=== PATIENT | male | born 1985 | race Caucasian/White ===

== ENCOUNTER 2023-02-21 08:24 | Outpatient (CLI) | payer OTHER, SELFPAY ==
[2023-02-21 13:11] LABS: Basophils Percent Auto 0.6 % (0.2-1.2); Eosinophils Absolute Auto 0.4 K/mm3 (0-0.3); Eosinophils Percent Auto 5.4 % (0-4.4); Hematocrit 48.3 % (42.0-52.0); Hemoglobin 15.7 g/dL (14.0-18.0); Immature Granulocyte Absolute 0.01 K/mm3 (0.00-0.031); Immature Granulocyte Percent A 0.1 % (0-0.5); Lymphocytes Absolute Auto 1.89 K/mm3 (0.9-3.2); Lymphocytes Percent Auto 26.1 % (18.3-44.2); Mean Corpuscular HGB Conc 32.5 g/dl (32-36); Mean Corpuscular Hemoglobin 30.7 pg (26-34); Mean Corpuscular Volume 94.5 fl (80-100); Mean Platelet Volume 10.7 fl (7.4-10.4); Monocytes Absolute Auto 0.6 K/mm3 (0.1-0.6); Monocytes Percent Auto 7.6 % (2.6-8.5); Neutrophils Absolute Auto 4.4 K/mm3 (1.3-6.7); Neutrophils Percent Auto 60.2 % (45.5-73.1); Platelet Count Result 266 k/mm3 (150-375); Red Blood Count 5.11 M/mm3 (4.6-6.20); Red Cell Distribution Width 12.3 % (11.5-14.5); White Blood Count 7.3 K/mm3 (4.5-10.0)
[2023-02-21 13:24] LABS: Alanine Aminotransferase 22 U/L (6-50); Albumin Level 4.4 g/dL (3.5-5.1); Alkaline Phosphatase 42 U/L (38-126); Anion Gap 8 mmol/L (8-16); Aspartate Amino Transferase 35 U/L (17-59); Bilirubin,Total 0.7 mg/dL (0.2-1.3); Blood Urea Nitrogen 16 mg/dL (9-20); Calcium 8.9 mg/dL (8.4-10.2); Carbon Dioxide 30 mmol/L (22-30); Chloride 99 mmol/L (98-107); Cholesterol 237 mg/dL (0-200); Estimated Glomerular Filt Rate > 60; Glucose 94 mg/dL (65-110); HDL Direct 57 mg/dL; Potassium 4.5 mmol/L (3.4-5.0); Sodium 137 mmol/L (137-145); Triglycerides 99 mg/dL (<150)
[2023-02-21 13:34] LABS: LDL Cholesterol Direct 131 mg/dL
== END 2023-02-21 08:25 | disposition home or self-care (01) ==
LOC: ANHGOSHLAB 08:26
PROVIDERS: PCP Family Medicine; Visit Provider Family Medicine
DX: Z00.00 Encounter for general adult medical examination without abnormal findings (principal)
CPT/HCPCS: 36415; 80053; 80061; 85025

== ENCOUNTER 2023-11-17 07:53 | Outpatient (CLI) | payer OTHER, SELFPAY ==
[2023-11-17 13:08] LABS: Alanine Aminotransferase 17 U/L (6-50); Albumin Level 4.6 g/dL (3.5-5.1); Alkaline Phosphatase 55 U/L (38-126); Anion Gap 7 mmol/L (4-12); Aspartate Amino Transferase 79 U/L (17-59); Blood Urea Nitrogen 20 mg/dL (9-20); Calcium 9.3 mg/dL (8.4-10.2); Carbon Dioxide 29 mmol/L (22-30); Chloride 101 mmol/L (98-107); Cholesterol 212 mg/dL (0-200); Estimated Glomerular Filt Rate > 60; Glucose 100 mg/dL (65-110); HDL Direct 66 mg/dL; Potassium 4.3 mmol/L (3.4-5.0); Sodium 137 mmol/L (137-145); Triglycerides 83 mg/dL (<150)
[2023-11-17 13:13] LABS: Rheumatoid Factor < 12.0 IU/ML (<12)
[2023-11-17 13:20] LABS: LDL Cholesterol Direct 108 mg/dL
[2023-11-17 13:38] LABS: Prostate Specific Antigen 0.8 ng/mL (< OR = 4.0)
[2023-11-17 14:12] LABS: Erythrocyte Sedimentation Rate 2 mm/hr (0-20)
[2023-11-17 14:51] LABS: Hepatitis C Virus Antibody Negative (Negative)
[2023-11-18 12:33] LABS: ANA Cascade Screen NEGATIVE (NEGATIVE)
== END 2023-11-17 07:54 | disposition home or self-care (01) ==
LOC: ANHGOSHLAB 07:54
PROVIDERS: PCP Family Medicine; Visit Provider Family Medicine
DX: Z00.00 Encounter for general adult medical examination without abnormal findings (principal); M79.10 Myalgia, unspecified site; R13.10 Dysphagia, unspecified; Z80.42 Family history of malignant neoplasm of prostate; Z11.59 Encounter for screening for other viral diseases; Z12.5 Encounter for screening for malignant neoplasm of prostate
CPT/HCPCS: 36415; 80053; 80061; 84153; 85652; 86038; 86225; 86235; 86364; 86430; 86431; 86803; G0103

== ENCOUNTER 2023-12-01 07:00 | Outpatient (NON) | payer OTHER, SELFPAY | END 2023-12-01 07:01 | disposition home or self-care (01) | LOC: ANHLAB 12-02 12:42 | PROVIDERS: PCP Family Medicine; Visit Provider Internal Medicine Gastroenterology | DX: K21.00 Gastro-esophageal reflux disease with esophagitis, without bleeding (principal) | CPT/HCPCS: 88305 ==

== ENCOUNTER 2023-12-01 08:06 | Day surgery (SDC) | payer OTHER, SELFPAY ==
[2023-11-20 08:50] VITALS: BMI 23.0
[2023-11-21 11:52] VITALS: BMI 22.5
[2023-12-01 08:37] VITALS: BP 124/80; PULSE 61; RESP 18; TEMP 37.1; O2SAT 99
[2023-12-01] MEDS: LACTATED RINGERS 1,000 ML 150 ML IV CONT (08:39)
--- NOTE | 2023-12-01 09:11 | P.HP_ITS ---
History of Present Illness History of Present Illness Consent: Risks, benefits, and alternatives have been discussed and questions answered. Patient agrees to proceed with procedure. Chief complaint: Dysphagia,unspedified; myalgia unspecified site Narrative: Denice Clay is a 38 year old male Who has been having difficulty with food getting stuck when swallowing. This began about 2 years ago. Review of Systems Review of Systems: All systems reviewed & are unremarkable except as noted in HPI and below PMFSH Past Medical History Medical History Interiano's palsy Cervical radiculopathy xray: 12.30.18: mild to moderate cervical spondylosis Family History Family History Father Hypertension, Onset Age: 67 Mother Hypertension, Onset Age: 67 Other Malignant neoplasm of prostate Social History Social History Smoking status: Never smoker Alcohol intake: never Substance use: never Substance use type: does not use Do You Feel Safe in your Home?: Yes Lack of Transportation: No Lack of Food: Never True Current Housing: I Have Housing Concerned About Future Housing: No Difficulty Paying Gas/Electric Bills: No Difficulty Paying for Meds: No Currently Unemployed: No Education: Bachelor's Degree Difficulty w/ Childcare or Family Care: No Living arrangements: with family Occupation/Education: occupation 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 Gender identity (if verbalized by the patient): Male Spiritual care concerns: No Agree to blood products: Yes Meds Home Medications and Allergies Home Medications Medication Instructions Recorded Confirmed Type omeprazole 40 mg capsule,delayed 40 mg PO DAILY #90 caps 11/13/23 12/01/23 Rx release Allergies Allergy/AdvReac Type Severity Reaction Status Date / Time No Known Allergies Allergy Verified 12/01/23 08:36 Vital Signs Vital Signs - 24 hr 12/01/23 08:37 Temperature 37.1 C Pulse Rate 61 Respiratory Rate 18 Blood Pressure 124/80 Pulse Oximetry 99 Oxygen Delivery Room Air Exam Const: General: alert Orientation/consciousness: patient oriented x3 Resp: Auscultation: clear to auscultation bilaterally Cardio: Rhythm: regular rhythm GI: GI Palp: Yes Soft to palpation and No Tenderness to palpation present (GI) Neuro: General: patient oriented x3 Assessment and Plan Assessment and plan (1) Dysphagia: Qualifiers: Dysphagia type: esophageal phase Qualified Code(s): R13.19 - Other dysphagia Code(s): R13.10 - Dysphagia, unspecified Status: Acute Assessment and Plan: EGD with possible biopsy or dilatation or cautery.
--- NOTE | 2023-12-01 09:27 | WPDANESEPPF ---
Anes - Initial Pre Proc Eval Procedure: Operation Date: 12/01/23 10:00 Proposed Procedures p Esophagogastroduodenoscopy - John Boucher MD Date/Time: 12/01/23 09:27 Surgeon: John Boucher MD Pre Op Diagnosis: Dysphagia,unspedified; myalgia unspecified site Patient Data Age: 38 Gender: M Height: 1.96 m Weight: 87.7 kg Last Vital Signs Temp 37.1 C 12/01/23 08:37 Pulse 61 12/01/23 08:37 Resp 18 12/01/23 08:37 BP 124/80 12/01/23 08:37 Pulse Ox 99 12/01/23 08:37 O2 Del Method Room Air 12/01/23 08:37 Allergies Allergy/AdvReac Type Severity Reaction Status Date / Time No Known Allergies Allergy Verified 12/01/23 08:36 Home Medications Medication Instructions Recorded Confirmed Type omeprazole 40 mg capsule,delayed 40 mg PO DAILY #90 caps 11/13/23 12/01/23 Rx release Patient hx anesthesia problems: none Family hx anesthesia problems: none Results Review: All pre-operative results and documents have been reviewed as part of the pre-operative evaluation. [facility] Past Medical History Medical History Interiano's palsy Cervical radiculopathy xray: 7.17.19: mild to moderate cervical spondylosis Family History Family History Father Hypertension, Onset Age: 67 Mother Hypertension, Onset Age: 67 Other Malignant neoplasm of prostate Social History Social History Smoking status: Never smoker Alcohol intake: never Substance use: never Substance use type: does not use Do You Feel Safe in your Home?: Yes Lack of Transportation: No Lack of Food: Never True Current Housing: I Have Housing Concerned About Future Housing: No Difficulty Paying Gas/Electric Bills: No Difficulty Paying for Meds: No Currently Unemployed: No Education: Bachelor's Degree Difficulty w/ Childcare or Family Care: No Living arrangements: with family Occupation/Education: occupation 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 Informed Consent: The patient's anesthetic plan and its attendant risks and benefits were discussed with the patient/family/POA. Questions were solicited and answers provided to the satisfaction of the patient/family/POA.
[2023-12-01 10:25] VITALS: BP 114/75; PULSE 63; RESP 16; O2SAT 100
[2023-12-01 10:33] VITALS: BP 111/79; PULSE 69; RESP 16; O2SAT 100
--- NOTE | 2023-12-01 11:31 | WPDANESPN ---
Anes - Prog Note Post-Op Date/Time: 12/01/23 11:31 Cardiovascular status: normal Respiratory status: normal Airway patency: baseline Mental status: baseline Post-Op hydration status: normal Vital Signs: Last Vital Signs Temp 37.1 C 12/01/23 08:37 Pulse 69 12/01/23 10:33 Resp 16 12/01/23 10:33 BP 111/79 12/01/23 10:33 Pulse Ox 100 12/01/23 10:33 O2 Del Method Room Air 12/01/23 10:33 Pain Score (VAS): 0/10 I/O: Intake & Output 11/30/23 12/01/23 12/01/23 23:59 07:59 15:59 Intake Total 1300 Balance 1300 Patient Feedback: Patient satisfied with anesthetic care.
== END 2023-12-01 10:50 | disposition home or self-care (01) ==
PROVIDERS: PCP Family Medicine; Visit Provider Internal Medicine Gastroenterology
PROC: 0DJ08ZZ Inspection of Upper Intestinal Tract, Via Natural or Artificial Opening Endoscopic (ICD-10-PCS; CPT 43235; principal; 2023-12-01 10:00)
DX: R13.19 Other dysphagia (principal); K22.2 Esophageal obstruction; K21.9 Gastro-esophageal reflux disease without esophagitis
CPT/HCPCS: 43249; 43239

== ENCOUNTER 2024-09-29 07:48 | Outpatient (CLI) | payer OTHER, SELFPAY ==
--- OUTSIDE RECORDS SUMMARY | 2024-09-29 07:57 | XMS_ITS | Clinical Summary ---
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 Gender Identity Not on file Sexual Orientation Not on file Plan of Treatment Health Maintenance Due Date Last Done Comments Hepatitis C Virus (HCV) Screening 1985 Hepatitis B Immunization (1 of 3 - 19+ 3-dose series) 08/27/2002 Influenza Immunization (#1) 2024 SARS-COV-2 Immunization ( season) 2024 Respiratory Syncytial Virus (RSV) Immunization (Adult) (1 - 1-dose 75+ series) 08/27/2058 DTaP/Tdap/Td Immunization Discontinued 09/15/2007 TdaP Immunization Completed 09/15/2007 Meningococcal Immunization (ACWY) Aged Out No longer eligible based on patient's age to complete this topic Pneumococcal Immunization Combined Aged Out No longer eligible b ased on patient's age to complete this topic Rotavirus Immunization Aged Out No lo nger eligible based on patient's age to complete this topic Insurance [employer] on file
--- OUTSIDE RECORDS SUMMARY | 2024-09-29 07:57 | XMS_ITS | Referral Summary ---
Author Organization [place] [address] [address] Care Team Providers Care Barber Shop Operator Name Role Phone No, Physician Primary Care Provider [phone] Allergies No known active allergies Medications No known medications Active Problems No known active problems Social History Tobacco Use Types Packs/Day Years Used Date Smoking Tobacco: Never Personal Safety Answer Date Recorded Getting School Help Needed Not on file 08/16 Sex and Gender Information Value Date Recorded Sex Assigned at Not on file Legal Sex Male 2:56 PM CDT Gender Identity Not on file Sexual Orientation Not on file Last Filed Vital Signs Vital Sign Reading Time Taken Comments Blood Pressure 124/78 09/11/2021 5:07 PM CDT Pulse 76 09/11/2021 5:07 PM CDT Temperature 37.6 C (99.7 F) 09/11/2021 5:07 PM CDT Respiratory Rate 18 09/11/2021 5:07 PM CDT Oxygen Saturation 99% 09/11/2021 5:07 PM CDT Inhaled Oxygen Concentration - - Weight 92.1 kg (203 lb) 09/11/2021 5:07 PM CDT Height 195.6 cm (6' 5 ) 09/11/2021 5:07 PM CDT Body Mass Index 24.07 09/11/2021 5:07 PM CDT Plan of Treatment Not on file Insurance [facility] Care Teams Barber Shop Operator Relationship Specialty Start Date End Date No, Physician PCP - General 09/11/21
--- OUTSIDE RECORDS SUMMARY | 2024-09-29 07:57 | XMS_ITS | Clinical Summary ---
Author Organization [facility] [address] Address [address] [place] [id number] Care Team Providers Care Masticator Name Role Phone No, Physician Primary Care Provider [phone] Allergies No known active allergies Medications No [...] on file Sexual Orientation Not on file Obstetrics History Last Filed Vital Signs Vital Sign Reading [...] 09/11/2021 5:07 PM CDT Plan of Treatment Health Maintenance Due Date Last Done Comments Depression Screening 1985 Hepatitis C Screening 1985 Varicella Vaccines (1 of 2 - 13+ 2-dose series) 08/27/1996 Hepatitis B Screening 08/27/2001 Regular Well Visit/Exam 18-64 08/27/2001 DTaP/Tdap/Td Vaccine (2 - Td or Tdap) 09/14/2017 09/15/2007 Covid-19 Vaccine (2023-2 5 season) 2024 09/26/2020, 08/31/2020 Influenza Vaccine (Season Ended) 2025 HPV Vaccines Aged Out No longer eligi ble based on patient's age to complete this topic Pneumococcal vaccine <65 Aged Out No longer eligible based on patient's age to complete this topic Insurance [facility] Care Teams Masticator Relationship Specialty Start Date End Date No, Physician PCP - General 09/11/21
== END 2024-09-29 07:49 | disposition home or self-care (01) ==
LOC: ANHSURGERY 07:53
PROVIDERS: PCP Family Medicine; Visit Provider Surgery
DX: Z01.818 Encounter for other preprocedural examination (principal); K40.90 Unilateral inguinal hernia, without obstruction or gangrene, not specified as recurrent
CPT/HCPCS: 36415; 86850; 86900; 86901

== ENCOUNTER 2024-10-04 00:54 | Day surgery (SDC) | payer OTHER, BC, SELFPAY ==
[2024-09-24 10:19] VITALS: BMI 23.5
--- NOTE | 2024-09-24 10:20 | PC.NURSE ---
Report to the Outpatient Waiting Room, entrance under the green pavilion located off [facility], at time ___0600____ on date ____10/04/2024___. Planned Procedure Time: ____729____.? Time changes happen often and if your time is changed the preop area will call you the afternoon before. - You and your visitor will be asked to self-screen and do not enter if you have any COVID symptoms. Please call surgeon if you need to reschedule. - A mask is optional within the hospital at this time. Patients may have clear liquids (water, carbonated beverages, clear teas, apple juice) until 3 hours prior to surgery with a maximum of 20 ounces. - No food from midnight until time of surgery and no smoking, or chewing tobacco (or any form of nicotine). No chewing gum, candy or mints. - Infants may have breast milk until 4 hours before surgery, formula 6 hours prior to surgery. - Children will be allowed to drink immediately following surgery.? If applicable, please bring a bottle or sippy cup to assist with drinking. Juice, water, soda, and popsicles are readily available.? For infants on formula, please bring formula the day of surgery.? Pacifiers are allowed. Take only the following medications with a SIP of water on the morning of surgery: none DO NOT STOP ANY OF YOUR OTHER PRESCRIPTION MEDICATIONS PRIOR TO SURGERY EXCEPT THE FOLLOWING Hold all vitamins and supplements for 3 days per anesthesiologist. Medications to discontinue per physician Date to take last dose Please no make-up, nail andorran, hairspray, perfume, deodorant, or body powder the day of surgery.? No jewelry (including any body piercings) or valuables the day of surgery, leave them at home.? Please take a shower or bath the night before, or the morning of, surgery with an antibacterial soap.? Wear comfortable, loose fitting clothing.? Children are encouraged to wear pajamas. - Jewelry must be removed prior to entering the operating room.? Rings and piercings that are not removed may be cut off. - The hospital will not accept responsibility for valuables.? - Please leave all valuables, including medications, at home the day of surgery. If you are going home after surgery, a licensed hazmat cdl a driver must drive you home.? - NO public transportation without another adult if you receive anesthesia. - We recommend that an adult stay with you for 24 hours following discharge. - We also recommend that you do not drive, make important decision, drink alcoholic beverages, or take any drugs that were not prescribed by your health care provider for at least 24 hours after your discharge time. For Pediatric surgeries, we recommend two adults accompany the child home. Follow any additional instructions given to you from your surgeon. Telephone instructions given to ___Shea and asked if any additional questions and then verbalized understanding. Patient advised to call surgeon office or pre surgery nurse liaison [phone] if any additional questions.
[2024-10-04] VITALS (10 sets, daily range): BP systolic 111–134; BP diastolic 66–78; PULSE 61–98; RESP 10–16; TEMP 36.2–36.9; O2SAT 96–100
--- OUTSIDE RECORDS SUMMARY | 2024-10-04 01:05 | XMS_ITS | Referral Summary ---
Author Organization [place] [address] [address] Care Team Providers Care Duralumin Mechanic Name Role Phone No, Physician Primary Care Provider [phone] Allergies No known active allergies Medications No [...] 5:07 PM CDT Height 195.6 cm (6' 5) 09/11/2021 5:07 PM CDT Body Mass Index 24.07 09/11/2021 5:07 PM CDT Plan of Treatment Not on file Insurance [facility] Care Teams Duralumin Mechanic Relationship Specialty Start Date End Date No, Physician PCP - General 09/11/21
--- OUTSIDE RECORDS SUMMARY | 2024-10-04 01:05 | XMS_ITS | Clinical Summary ---
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
--- OUTSIDE RECORDS SUMMARY | 2024-10-04 01:05 | XMS_ITS | Clinical Summary ---
Author Organization [facility] [address] Address [address] [place] [phone] Care Team Providers Care Therapist Occupational Name Role Phone No, Physician Primary Care Provider [phone] Allergies No known active allergies Medications No [...] patient's age to complete this topic Insurance [facility] Care Teams Therapist Occupational Relationship Specialty Start Date End Date No, Physician PCP - General 09/11/21
--- NOTE | 2024-10-04 05:54 | WPDHPUPDATE1 ---
History and Physical Update Update Date/Time: 10/04/24 05:54 History and Physical has been reviewed, including an updated exam of the patient. There are NO changes in the patient's condition. Risks, benefits, and alternatives have been discussed and questions answered. Patient agrees to proceed with procedure.
[2024-10-04] MEDS: ACETAMINOPHEN 500 MG TABLET 1000 MG PO (06:40)
[2024-10-04] MEDS: LACTATED RINGERS 1,000 ML 30 ML IV CONT ×2 (06:45→10:20)
[2024-10-04] MEDS: KETOROLAC 15 MG/ML VIAL (*BKC) IV PUSH ×2 (06:48→09:48)
--- NOTE | 2024-10-04 06:58 | WPDANESEPPF ---
Anes - Initial Pre Proc Eval Procedure: Operation Date: 10/04/24 07:30 Proposed Procedures p Robotic Assisted Laparoscopic Left Inguinal Hernia Repair with Mesh, - Delonte Kraft MD s Bilateral Vasectomy - Regis [place] MD Date/Time: 10/04/24 06:58 Surgeon: Delonte Kraft MD Pre Op Diagnosis: reducible left inguinal hernia, desires sterilizat Patient Data Age: 39 Gender: M Height: 1.96 m Weight: 90 kg Allergies Allergy/AdvReac Type Severity Reaction Status Date / Time No Known Allergies Allergy Verified 10/04/24 06:58 Home Medications ?Medication ?Instructions ?Recorded ?Confirmed ?Type omeprazole 40 mg capsule,delayed 40 mg PO DAILY #90 caps 11/13/23 09/24/24 Rx release Patient hx anesthesia problems: none Family hx anesthesia problems: none Results Review: All pre-operative results and documents have been reviewed as part of the pre-operative evaluation. [facility] Past Medical History Medical History Cervical radiculopathy xray: 7.17.19: mild to moderate cervical spondylosis Interiano's palsy Surgical History Surgical History History of esophagogastroduodenoscopy (EGD) Family History Family History Father Hypertension, Onset Age: 67 Mother Hypertension, Onset Age: 67 Other Malignant neoplasm of prostate Social History Social History Smoking status: Never smoker Alcohol intake: never Substance use: never Substance use type: does not use Do You Feel Safe in your Home?: Yes Lack of Transportation: No Lack of Food: Never True Current Housing: I Have Housing Concerned About Future Housing: No Difficulty Paying Gas/Electric Bills: No Difficulty Paying for Meds: No Currently Unemployed: No Education: Bachelor's Degree Difficulty w/ Childcare or Family Care: No Living arrangements: with family Occupation/Education: occupation 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 Informed Consent: The patient's anesthetic plan and its attendant risks and benefits were discussed with the patient/family/POA. Questions were solicited and answers provided to the satisfaction of the patient/family/POA.
--- NOTE | 2024-10-04 07:39 | PM.IMHP ---
H&P: HPI History of Present Illness Date/Time: 10/04/24 07:39 Chief Complaint: Left inguinal hernia Narrative: Mr. Clay presents to the office at the request of Dr. Ela Landrum for evaluation of a possible hernia. 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 Bulge is reducible while lying down. No change no change in bowel habits, urinary difficulty, abdominal distension, nausea, vomiting, or abdominal distension. Review of Systems Review of Systems: The remainder of the review of systems to include constitutional, HEENT, cardiovascular, respiratory, GI, , integumentary, musculoskeletal, endocrine, immunologic, hematologic, psychiatric, and neurologic are all negative except for which is mentioned above in the HPI. [facility] Past Medical History Medical History Cervical radiculopathy xray: 7.17.19: mild to moderate cervical spondylosis Interiano's palsy Surgical History Surgical History History of esophagogastroduodenoscopy (EGD) Family History Family History Father Hypertension, Onset Age: 67 Mother Hypertension, Onset Age: 67 Other Malignant neoplasm of prostate Social History Social History Smoking status: Never smoker Alcohol intake: never Substance use: never Substance use type: does not use Do You Feel Safe in your Home?: Yes Lack of Transportation: No Lack of Food: Never True Current Housing: I Have Housing Concerned About Future Housing: No Difficulty Paying Gas/Electric Bills: No Difficulty Paying for Meds: No Currently Unemployed: No Education: Bachelor's Degree Difficulty w/ Childcare or Family Care: No Living arrangements: with family Occupation/Education: occupation 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 Gender identity (if verbalized by the patient): Male Spiritual care concerns: No Agree to blood products: Yes Meds Home Medications and Allergies Home Medications ?Medication ?Instructions ?Recorded ?Confirmed ?Type omeprazole 40 mg capsule,delayed 40 mg PO DAILY #90 caps 11/13/23 10/04/24 Rx release Allergies Allergy/AdvReac Type Severity Reaction Status Date / Time No Known Allergies Allergy Verified 10/04/24 07:00 Vital Signs Vital Signs - 24 hr 10/04/24 06:08 Temperature 36.9 C Pulse Rate 61 Respiratory Rate 16 Blood Pressure 111/70 Pulse Oximetry 100 Oxygen Delivery Room Air Exam Const: General: comfortable and no acute distress HENMT: Ears: TM's normal bilaterally Face/Nose/Sinus: Normal nares present Mouth: Yes moist mucous membranes Eyes: General: appearance normal, both eyes and all related structures Sclera: sclerae normal Pupils: Equal, round and reactive pupils present EOM: EOMs intact bilaterally Neck: Neck: supple and no JVD Resp: Effort & Inspection: normal respiratory effort Auscultation: clear to auscultation bilaterally Cardio: Rate: regular rate Rhythm: regular rhythm GI: GI Palp: Yes Soft to palpation, No Firmness to palpation present (GI), No Tenderness to palpation present (GI), No Guarding due to palpation present (GI) and No Hernia present Other: small 1 cm umbilical hernia : Other: Bilateral descended testes, no masses. Small reducible left inguinal hernia with Valsalva. No right inguinal hernia. Neuro: General: gait normal Speech: normal speech Motor exam (neuro): 5/5 motor strength present throughout Sensory Exam: normal sensation Extrem: General: normal to inspection Psych: Mental Status: mental status grossly normal Affect: normal affect Assessment and Plan Assessment and plan (1) Left inguinal hernia: Code(s): K40.90 - Unilateral inguinal hernia, without obstruction or gangrene, not specified as recurrent Status: Acute Assessment and Plan: Prior to the patients visit, I reviewed the office note of Dr. Landrum. Patient has a easily palpable, reducible left inguinal hernia. I've recommended proceeding with robotic assisted laparoscopic left inguinal hernia repair with mesh to be performed in the OR under general anesthesia as an outpatient. The surgery was explained in detail including description, risks, benefits, the use of mesh, post-operative restrictions, anticipated recovery, and expected outcome. After discussion and answering all the patients questions, he agrees to proceed as discussed. (2) Unilateral inguinal hernia without obstruction: Code(s): K40.90 - Unilateral inguinal hernia, without obstruction or gangrene, not specified as recurrent Status: Acute
--- NOTE | 2024-10-04 07:42 | WPDHPUPDATE1 ---
History and Physical Update Update Date/Time: 10/04/24 07:42 History and Physical has been reviewed, including an updated exam of the patient. There are NO changes in the patient's condition. Risks, benefits, and alternatives have been discussed and questions answered. Patient agrees to proceed with procedure.
[2024-10-04] MEDS: ceFAZolin 2 GM/D5W 50 ML 2 GM/50 ML BAG IVPB (07:47)
--- NOTE | 2024-10-04 08:03 | S_PTH ---
PATIENT: Denice Clay LOC: [facility] U#:[id number] AGE/SX: 39/M ROOM: RE10/04/[address]: Delonte Kraft MD : 1985 BED: DIS: 10/04/2024 SPEC #: [id number] RECD: 10/04/24 11:33 STATUS: CHRISTY REQ #: [id number] JOEY: 10/04/24 08:[address]: Delonte Kraft DEPT: [facility] Surgical RECD BY: Shanti Caban ENTERED: 10/04/24 11:33 SP TYPE: Surgical OTHR DR: Ela Landrum MD Tissues: A - Vas Deferens B - Vas Deferens Procedures: Gross Exam Level 1
--- NOTE | 2024-10-04 08:23 | P.OP_ITS ---
Procedure Note - Detailed Date of Procedure 10/04/24 Pre-op Diagnosis reducible left inguinal hernia, desires sterilizat Post-op Diagnosis Same Procedure Performed Bilateral vasectomy Surgeon Regis [place] MD Anesthesia General Description of Procedure The patient is prepped and draped in a routine fashion, while in a supine position, after the uneventful induction of a general anesthetic. A single incision (approx. 1/4') is made in the median raphe of the scrotum. Each vas deferens is delivered and a short segment excised and send for pathology sectioning. The cut end of the vas deferens are cauterized and spermatic cord fascia is interposed between the cut ends. The vasa are returned to an orth otopic position and the incision is closed with a 4-0 chromic.
[2024-10-04] MEDS: LIDOCAINE 1% LOCAL INJ 10 ML VIAL 5 ML INFILTRATE (08:27)
[2024-10-04] MEDS: LIDO 1%/EPINEPHRINE 1:100,000 50 ML VIAL 30 ML INFILTRATE (08:28)
[2024-10-04] MEDS: BUPivacaine HCL 0.5% 10 ML AMP 30 ML INFILTRATE (08:31)
--- NOTE | 2024-10-04 11:03 | W.PM.PROC2 ---
Procedure Note - Detailed Date of Procedure 10/04/24 Pre-op Diagnosis Reducible left inguinal hernia, desires sterilizat Post-op Diagnosis Same Procedure Performed Robotic assisted laparoscopic left inguinal hernia repair with Bard 3D mid weight mesh. Surgeon Delonte Kraft MD Anesthesia General Indications Patient is a 49-year-old male who apparently developed a left inguinal hernia after fix some playground equipment at work. It is slowly enlarging and causing him some minor pain. He presents now for elective repair with mesh reinforcement the robotic assisted laparoscopic approach with mesh. Patient also desires to have elective sterilization and is going to have a open vasectomy done by Dr. Newton at the same setting. Findings Patient had a small to moderate-sized reducible left inguinal hernia. No evidence of a right inguinal hernia. He also had a small umbilical hernia. Description of Procedure After informed consent was obtained patient brought to the operating room was placed supine position and general endotracheal anesthesia was administered. Dr. Newton then came into the operating room and performed a bilateral cecectomy. Details of his procedure can be found his formal dictated note. The patient was then re-prepped and draped the robotic assisted laparoscopic left inguinal hernia repair.
[2024-10-04] MEDS: fentaNYL CITRATE INJ (*CRX) 100 MCG/2 ML VIAL 25 MCG IV PUSH (11:31)
[2024-10-04] MEDS: oxyCODONE HCL (*CRX) 5 MG TAB IR PO (12:02)
== END 2024-10-04 12:44 | disposition home or self-care (01) ==
PROVIDERS: Urology; PCP Family Medicine; Visit Provider Surgery
PROC: 8E0Y4CZ Robotic Assisted Procedure of Lower Extremity, Percutaneous Endoscopic Approach (ICD-10-PCS; CPT 49650; principal; 2024-10-04 07:30)
PROC: (CPT 55250; 2024-10-04 07:30)
DX: Z30.2 Encounter for sterilization (principal); K40.90 Unilateral inguinal hernia, without obstruction or gangrene, not specified as recurrent; K42.9 Umbilical hernia without obstruction or gangrene; D17.6 Benign lipomatous neoplasm of spermatic cord; Z80.42 Family history of malignant neoplasm of prostate
CPT/HCPCS: 55250; 49650; S2900; 88300; A9270; C1781; J0690; J1100; J1885; J2003; J2004; J2250; J2405; J2704; J3010; J7030; J7120